=== PATIENT | male | born 1995 | race Two or more races ===

== ENCOUNTER 2018-05-01 09:57 | Emergency (ER) | payer MEDICAID, MEDICARE, OTHER, SELFPAY ==
[~2018-05-01] VITALS: Ht 175.3 cm; Wt 62.3 kg
[2018-05-01] MEDS ORDERED: BUPIVACAINE HCL 0.5% 10 ML VIAL SC ONE (10:15)
[2018-05-01] MEDS ORDERED: LIDOCAINE W/EPINEPHRINE 1% 20ML VIAL SC ONE (10:15)
[2018-05-01] MEDS ORDERED: CETACAINE SPRAY 5GM TOP ONE (10:15)
[2018-05-01] MEDS ORDERED: IBUP-1022 PO (10:58)
[2018-05-01] MEDS ORDERED: CLEO300C2 PO (10:58)
[2018-05-01] MEDS ORDERED: CLINDAMYCIN 150 MG CAP PO ONE (11:00)
[2018-05-01 11:07] VITALS: BP 132/78
== END 2018-05-01 11:15 | disposition home or self-care (01) ==
LOC: M ED 09:57
DX: S02.5XXA Fracture of tooth (traumatic), initial encounter for closed fracture (principal); X58.XXXA Exposure to other specified factors, initial encounter; Y92.89 Other specified places as the place of occurrence of the external cause; Z88.0 Allergy status to penicillin

== ENCOUNTER 2018-05-17 12:23 | Emergency (ER) | payer OTHER, SELFPAY ==
[~2018-05-17] VITALS: Ht 167.6 cm; Wt 62.3 kg
[~2018-05-17 12:23] MED LIST: CLEO300C2 PO; IBUP-1022 PO
[2018-05-17] MEDS ORDERED: ADACEL/BOOSTRIX VACCINE (DIPHTH/PERTUSS/ACELL/TETANUS)0.5ML SYR (90715) IM ONE (13:00)
[2018-05-17] MEDS ORDERED: CIPR-249 PO (13:19)
[2018-05-17 13:28] VITALS: BP 121/74
== END 2018-05-17 13:29 | disposition home or self-care (01) ==
LOC: M ED 12:23
DX: S91.331A Puncture wound without foreign body, right foot, initial encounter (principal); W45.0XXA Nail entering through skin, initial encounter; Y92.008 Other place in unspecified non-institutional (private) residence as the place of occurrence of the external cause; J45.909 Unspecified asthma, uncomplicated; Z88.0 Allergy status to penicillin

== ENCOUNTER → 2018-06-18 | Outpatient (REF) | payer OTHER ==
[~2018-06-18] MED LIST changes: +CIPR-249 PO
[2018-06-18 18:12] LABS: APPEARANCE, URINE CLEAR (CLEAR); BACTERIA, URINE AUTO NEGATIVE (NEGATIVE); BILIRUBIN, URINE AUTO NEGATIVE (NEGATIVE); BLOOD, URINE BLOOD NEGATIVE (NEGATIVE); COLOR, URINE YELLOW (YELLOW); GLUCOSE, URINE (UA) AUTO NEGATIVE (NEGATIVE); KETONE, URINE AUTO NEGATIVE (NEGATIVE); LEUKOCYTE ESTERASE, URINE AUTO NEGATIVE (NEGATIVE); MUCUS, URINE SMALL (NEGATIVE); NITRITE, URINE AUTO NEGATIVE (NEGATIVE); PROTEIN, URINE AUTO NEGATIVE (NEGATIVE); RBC, URINE AUTO 2 /HPF (0-3); SPECIFIC GRAVITY URINE AUTO 1.025 (1.002-1.035); SQUAMOUS EPITHELIAL CELL UR AU 0 /HPF (0-6); UROBILINOGEN, URINE AUTO 0.2 mg/dL (0.0-2.0); WBC, URINE AUTO 2 /HPF (0-3)
[2018-06-18 18:33] LABS: BASO % 0.4 % (0.0-1.0); EOS # 0.1 10^3/uL (0.0-0.50); EOS % 1.2 % (0.0-3.0); HEMATOCRIT 50.2 % (42.0-52.0); HEMOGLOBIN 16.9 g/dl (13.5-17.5); LYMPH # 2.6 10^3/uL (1.5-6.5); LYMPH % 28.7 % (24.0-44.0); MEAN CORPUSCULAR HEMOGLOBIN 28.8 pg (27.0-33.0); MEAN CORPUSCULAR HGB CONC 33.7 g/dl (32.0-36.5); MEAN CORPUSCULAR VOLUME 85.7 fl (80.0-96.0); MONO # 0.8 10^3/uL (0.0-0.8); MONO % 8.8 % (0.0-5.0); NEUTROPHILS # 5.4 10^3/uL (1.8-7.7); NEUTROPHILS % 60.7 % (36.0-66.0); PLATELET COUNT, AUTOMATED 292 10^3/uL (150-450); RED BLOOD COUNT 5.86 10^6/uL (4.30-6.10); WHITE BLOOD COUNT 8.9 10^3/uL (4.0-10.0)
[2018-06-18 18:45] LABS: ALBUMIN 4.4 GM/DL (3.2-5.2); ALT/SGPT 26 U/L (12-78); BILIRUBIN,TOTAL 0.6 MG/DL (0.2-1.0); BLOOD UREA NITROGEN 16 MG/DL (7-18); CALCIUM LEVEL 9.3 MG/DL (8.5-10.1); CARBON DIOXIDE LEVEL 29 MEQ/L (21-32); CHLORIDE LEVEL 104 MEQ/L (98-107); CHOLESTEROL LEVEL 175 MG/DL (<200); CREATININE FOR GFR 0.91 MG/DL (0.70-1.30); FREE T4 1.02 NG/DL (0.76-1.46); GLOMERULAR FILTRATION RATE > 60.0 (>60); GLUCOSE, FASTING 89 MG/DL (70-100); HDL CHOLESTEROL 50 MG/DL (>40); LDL CHOLESTEROL 106 MG/DL (<100); NON-HDL-C 125 MG/DL; POTASSIUM SERUM 3.9 MEQ/L (3.5-5.1); SODIUM LEVEL 141 MEQ/L (136-145); TOTAL PROTEIN 8.6 GM/DL (6.4-8.2); TRIGLYCERIDES LEVEL 96 MG/DL (<150)
[2018-06-18 18:46] LABS: TOTAL 25(OH) VITAMIN D 12.6 NG/ML (30.0-100.0)
[2018-06-18 19:03] LABS: HEMOGLOBIN A1c 5.4 %
[2018-06-18 19:26] LABS: HIV 1&2 SCREEN CENTAUR NEGATIVE (NEGATIVE)
[2018-06-18 22:01] LABS: CHLAMYDIA DNA AMPLIFICATION NEGATIVE (NEGATIVE); GC DNA AMPLIFICATION NEGATIVE (NEGATIVE)
[2018-06-20 09:52] LABS: HEPATITIS B SURFACE ANTIGEN NEGATIVE (NEGATIVE)
[2018-06-20 10:19] LABS: HEPATITIS B CORE ANTIBODY IGM NEGATIVE (NEGATIVE)
[2018-06-20 10:22] LABS: HEPATITIS A ANTIBODY IGM NEGATIVE (NEGATIVE)
[2018-06-21 00:07] LABS: Lyme Disease IgG/IgM Antibodie <0.91 ISR (0.00-0.90); Lyme Disease IgM Ab Quantitati <0.80 index (0.00-0.79)
[2018-06-22 00:07] LABS: HSV TYPE I IgG SPECIFIC <0.91 index (0.00-0.90); HSV TYPE I IgM AB <1:10 titer (<1:10); HSV TYPE II IgG SPECIFIC <0.91 index (0.00-0.90); HSV TYPE II IgM ABY <1:10 titer (<1:10)
== END ==
LOC: M LAB REF 16:37
PROVIDERS: ATTEND Internal Medicine
DX: Z13.228 Encounter for screening for other metabolic disorders (principal); Z11.3 Encounter for screening for infections with a predominantly sexual mode of transmission

== ENCOUNTER 2018-08-09 18:04 | Emergency (ER) | payer OTHER ==
[~2018-08-09] VITALS: Ht 175.3 cm; Wt 59.1 kg
[2018-08-09] MEDS ORDERED: KEFL500C17 PO (18:33)
[2018-08-09] MEDS ORDERED: cefTRIAXone SOD 1 GM VIAL (J0696) IM ONE (18:45)
[2018-08-09] MEDS ORDERED: LIDOCAINE 1% SDV 5 ML VIAL DILUENT ONE (18:45)
[2018-08-09 19:30] VITALS: BP 100/58
== END 2018-08-09 19:45 | disposition home or self-care (01) ==
LOC: EDBD 18:04 → M ED 18:04
DX: L03.113 Cellulitis of right upper limb (principal); F19.20 Other psychoactive substance dependence, uncomplicated; Z88.0 Allergy status to penicillin
CPT/HCPCS: 96372; 99284; J0696

== ENCOUNTER 2018-08-30 05:26 | Emergency (ER) | payer OTHER ==
[~2018-08-30] VITALS: Ht 177.8 cm; Wt 64.8 kg
[~2018-08-30 05:26] MED LIST changes: +KEFL500C17 PO
[2018-08-30] MEDS ORDERED: NS 1,000 ML IV ONE (06:00)
[2018-08-30 06:09] LABS: BASO # 0.1 10^3/uL (0.0-0.2); BASO % 0.3 % (0.0-1.0); EOS % 0.2 % (0.0-3.0); HEMATOCRIT 44.8 % (42.0-52.0); HEMOGLOBIN 15.4 g/dl (13.5-17.5); LYMPH # 1.4 10^3/uL (1.5-6.5); LYMPH % 6.3 % (24.0-44.0); MEAN CORPUSCULAR HEMOGLOBIN 29.7 pg (27.0-33.0); MEAN CORPUSCULAR HGB CONC 34.4 g/dl (32.0-36.5); MEAN CORPUSCULAR VOLUME 86.3 fl (80.0-96.0); MONO # 0.9 10^3/uL (0.0-0.8); MONO % 3.9 % (0.0-5.0); NEUTROPHILS # 19.6 10^3/uL (1.8-7.7); NEUTROPHILS % 88.9 % (36.0-66.0); PLATELET COUNT, AUTOMATED 313 10^3/uL (150-450); RED BLOOD COUNT 5.19 10^6/uL (4.30-6.10)
[2018-08-30] MEDS: ADACEL/BOOSTRIX VACCINE (DIPHTH/PERTUSS/ACELL/TETANUS)0.5ML SYR (90715) IM ONE ×2 (06:13→06:28)
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
[2018-08-30 06:40] LABS: ALBUMIN 3.6 GM/DL (3.2-5.2); ALT/SGPT 19 U/L (12-78); BILIRUBIN,DIRECT 0.1 MG/DL (0.0-0.2); BILIRUBIN,TOTAL 0.3 MG/DL (0.2-1.0); BLOOD UREA NITROGEN 16 MG/DL (7-18); CALCIUM LEVEL 8.9 MG/DL (8.5-10.1); CARBON DIOXIDE LEVEL 29 MEQ/L (21-32); CHLORIDE LEVEL 104 MEQ/L (98-107); CREATININE FOR GFR 0.83 MG/DL (0.70-1.30); ETHYL ALCOHOL (ETHANOL) < 0.003 % (0.000-0.010); GLOMERULAR FILTRATION RATE > 60.0 (>60); GLUCOSE, FASTING 122 MG/DL (70-100); POTASSIUM SERUM 3.7 MEQ/L (3.5-5.1); SODIUM LEVEL 139 MEQ/L (136-145); THYROID STIMULATING HORMONE 0.347 uIU/ML (0.358-3.740); TOTAL PROTEIN 7.6 GM/DL (6.4-8.2)
[2018-08-30] MEDS ORDERED: FLUORESCEIN OPHTH 1 MG STRIP OS ONE (07:00)
[2018-08-30] MEDS ORDERED: TETRACAINE 0.5% OPHTH SOLN 4ML OS ONE (07:00)
[2018-08-30] MEDS ORDERED: CLIN150C14 PO (07:10)
--- NOTE | 2018-08-30 07:19 | REP ---
PA and lateral chest: There are no comparisons. The lung elizabeth are clear. The cardiac size is normal. The jose martin, mediastinum, and skeletal structures are unremarkable. Impression: Negative PA and lateral chest. Electronically Signed by Kelvin Vaz MD 08/30/2018 07:10 A
[2018-08-30 07:24] VITALS: BP 120/61
--- NOTE | 2018-08-31 05:26 | ECGEPIP ---
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
== END 2018-08-30 07:36 | disposition home or self-care (01) ==
LOC: M ED 05:26
DX: S06.0X0A Concussion without loss of consciousness, initial encounter (principal); S00.12XA Contusion of left eyelid and periocular area, initial encounter; X58.XXXA Exposure to other specified factors, initial encounter; Y92.89 Other specified places as the place of occurrence of the external cause; J45.909 Unspecified asthma, uncomplicated; R56.9 Unspecified convulsions; Z88.0 Allergy status to penicillin; F17.210 Nicotine dependence, cigarettes, uncomplicated
CPT/HCPCS: 70450; 70486; 71046; 72125; 80048; 80076; 84443; 85025; 93005; 93041; 94760; 96360; 99284; G0480

== ENCOUNTER 2018-09-07 01:20 | Emergency (ER) | payer OTHER ==
[~2018-09-07] VITALS: Ht 177.8 cm; Wt 61.4 kg
[~2018-09-07 01:20] MED LIST changes: +CLIN150C14 PO
[2018-09-07] MEDS ORDERED: ONDANSETRON 4MG/2ML VIAL (J2405) IV ONE (05:45)
[2018-09-07] MEDS ORDERED: MORPHINE 4 MG/ML 1ML VIAL/SYRINGE (J2270) IV PRN (05:45)
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
[2018-09-07 07:25] VITALS: BP 119/58
== END 2018-09-07 07:27 | disposition short-term general hospital (02) ==
LOC: M ED 01:20
DX: S61.001A Unspecified open wound of right thumb without damage to nail, initial encounter (principal); S62.524A Nondisplaced fracture of distal phalanx of right thumb, initial encounter for closed fracture; W01.10XA Fall on same level from slipping, tripping and stumbling with subsequent striking against unspecified object, initial encounter; Y92.099 Unspecified place in other non-institutional residence as the place of occurrence of the external cause; Y93.9 Activity, unspecified; Y99.9 Unspecified external cause status; Z88.0 Allergy status to penicillin
CPT/HCPCS: 73120; 96374; 96375; 99285; J2270; J2405

== ENCOUNTER 2018-11-18 15:33 | Emergency (ER) | payer OTHER ==
[~2018-11-18] VITALS: Ht 175.3 cm; Wt 65.6 kg
[2018-11-18] MEDS ORDERED: IBUP200C25 PO (15:42)
[2018-11-18] MEDS ORDERED: CLIN150C14 PO (16:35)
[2018-11-18 17:13] VITALS: BP 131/75
== END 2018-11-18 17:35 | disposition home or self-care (01) ==
LOC: M ED 15:33
DX: S02.5XXA Fracture of tooth (traumatic), initial encounter for closed fracture (principal); K02.9 Dental caries, unspecified; Z88.0 Allergy status to penicillin; X58.XXXA Exposure to other specified factors, initial encounter; Y92.9 Unspecified place or not applicable; Y99.8 Other external cause status; R56.9 Unspecified convulsions; J45.909 Unspecified asthma, uncomplicated

== ENCOUNTER 2019-04-10 20:55 | Emergency (ER) | payer MEDICAID, OTHER, SELFPAY ==
[~2019-04-10] VITALS: Ht 175.3 cm; Wt 63.6 kg
[~2019-04-10 20:55] MED LIST changes: +IBUP200C25 PO
[2019-04-10] MEDS ORDERED: ALBUTEROL SULFATE 2.5 MG/0.5 ML INH NEB SOLN NEB ONE (23:15)
[2019-04-10] MEDS ORDERED: ALBUTEROL 90 MCG/ACT 8GM HFA INHALER INH ONE (23:15)
[2019-04-10 23:59] VITALS: BP 145/69
== END 2019-04-11 00:01 | disposition home or self-care (01) ==
LOC: M ED 20:55
DX: J45.901 Unspecified asthma with (acute) exacerbation (principal); R56.9 Unspecified convulsions; F17.200 Nicotine dependence, unspecified, uncomplicated; Z88.0 Allergy status to penicillin

== ENCOUNTER 2019-04-17 15:44 | Emergency (ER) | payer MEDICAID ==
[~2019-04-17] VITALS: Ht 175.3 cm; Wt 63.4 kg
[2019-04-17 15:45] VITALS: BP 135/87
== END 2019-04-17 20:07 | disposition left against medical advice (07) ==
LOC: M ED 15:44
DX: K08.89 Other specified disorders of teeth and supporting structures (principal); S02.5XXA Fracture of tooth (traumatic), initial encounter for closed fracture; X58.XXXA Exposure to other specified factors, initial encounter; Y92.9 Unspecified place or not applicable; Y93.9 Activity, unspecified; Y99.9 Unspecified external cause status; Z53.21 Procedure and treatment not carried out due to patient leaving prior to being seen by health care provider

== ENCOUNTER → 2019-04-18 | Outpatient (REF) | payer MEDICAID ==
[2019-04-18 17:31] LABS: BASO % 0.4 % (0.0-1.0); EOS # 0.1 10^3/uL (0.0-0.5); EOS % 0.6 % (0.0-3.0); HEMATOCRIT 48.6 % (42.0-52.0); HEMOGLOBIN 16.2 g/dl (13.5-17.5); LYMPH # 2.6 10^3/uL (1.5-5.0); LYMPH % 32.3 % (24.0-44.0); MEAN CORPUSCULAR HEMOGLOBIN 28.9 pg (27.0-33.0); MEAN CORPUSCULAR HGB CONC 33.3 g/dl (32.0-36.5); MEAN CORPUSCULAR VOLUME 86.8 fl (80.0-96.0); MONO # 0.6 10^3/uL (0.0-0.8); MONO % 7.6 % (0.0-5.0); NEUTROPHILS # 4.8 10^3/uL (1.5-8.5); NEUTROPHILS % 58.9 % (36.0-66.0); PLATELET COUNT, AUTOMATED 293 10^3/uL (150-450); WHITE BLOOD COUNT 8.1 10^3/uL (4.0-10.0)
[2019-04-18 17:54] LABS: ALBUMIN 4.4 GM/DL (3.2-5.2); ALT/SGPT 24 U/L (12-78); BILIRUBIN,TOTAL 0.2 MG/DL (0.2-1.0); BLOOD UREA NITROGEN 15 MG/DL (7-18); CALCIUM LEVEL 9.5 MG/DL (8.5-10.1); CARBON DIOXIDE LEVEL 29 MEQ/L (21-32); CHLORIDE LEVEL 107 MEQ/L (98-107); CHOLESTEROL LEVEL 167 MG/DL (<200); CHOLESTEROL RISK RATIO 3.408 (<5); CREATININE FOR GFR 0.82 MG/DL (0.70-1.30); GLOMERULAR FILTRATION RATE > 60.0 (>60); GLUCOSE, FASTING 90 MG/DL (70-100); HDL CHOLESTEROL 49 MG/DL (>40); LDL CHOLESTEROL 109 MG/DL (<100); NON-HDL-C 118 MG/DL; POTASSIUM SERUM 4.2 MEQ/L (3.5-5.1); SODIUM LEVEL 142 MEQ/L (136-145); TOTAL PROTEIN 7.8 GM/DL (6.4-8.2); TRIGLYCERIDES LEVEL 44 MG/DL (<150)
[2019-04-18 18:14] LABS: HEMOGLOBIN A1c 5.8 %
[2019-04-19 10:23] LABS: HEPATITIS B SURFACE ANTIGEN NEGATIVE (NEGATIVE)
[2019-04-19 10:41] LABS: HEPATITIS C VIRUS ABY INDEX < 0.0 INDEX (<0.8)
[2019-04-19 10:47] LABS: HEPATITIS B CORE ANTIBODY IGM NEGATIVE (NEGATIVE)
[2019-04-19 10:49] LABS: HIV 1&2 SCREEN CENTAUR NEGATIVE (NEGATIVE)
[2019-04-19 10:50] LABS: HEPATITIS A ANTIBODY IGM NEGATIVE (NEGATIVE)
== END ==
LOC: M LAB REF 16:32
PROVIDERS: ATTEND Family Medicine
DX: F19.11 Other psychoactive substance abuse, in remission (principal)

== ENCOUNTER 2019-04-27 11:56 | Emergency (ER) | payer MEDICAID ==
[~2019-04-27] VITALS: Ht 177.8 cm; Wt 63.0 kg
[2019-04-27] MEDS ORDERED: FLUORESCEIN OPHTH 1 MG STRIP OD ONE (12:45)
[2019-04-27] MEDS ORDERED: TETRACAINE 0.5% OPHTH SOLN 4ML OD ONE (12:45)
[2019-04-27] MEDS ORDERED: POLYSOL OD (14:14)
[2019-04-27] MEDS ORDERED: MOXI0.5S OD (14:14)
[2019-04-27 14:23] VITALS: BP 135/82
== END 2019-04-27 14:25 | disposition home or self-care (01) ==
LOC: M ED 11:56
DX: H10.31 Unspecified acute conjunctivitis, right eye (principal); S05.01XA Injury of conjunctiva and corneal abrasion without foreign body, right eye, initial encounter; X58.XXXA Exposure to other specified factors, initial encounter; Y92.9 Unspecified place or not applicable; Y93.E5 Activity, floor mopping and cleaning; Y99.9 Unspecified external cause status; J45.909 Unspecified asthma, uncomplicated; F17.200 Nicotine dependence, unspecified, uncomplicated; F12.10 Cannabis abuse, uncomplicated; Z79.899 Other long term (current) drug therapy; Z88.0 Allergy status to penicillin

== ENCOUNTER 2019-05-07 19:16 | Emergency (ER) | payer MEDICAID ==
[~2019-05-07] VITALS: Ht 172.7 cm; Wt 64.7 kg
[~2019-05-07 19:16] MED LIST changes: +MOXI0.5S OD; +POLYSOL OD
[2019-05-07 19:21] VITALS: BP 122/72
[2019-05-07] MEDS ORDERED: ALBU83IN NEB (19:25)
[2019-05-07] MEDS ORDERED: PROAAER10 INH (19:25)
== END 2019-05-07 20:08 | disposition home or self-care (01) ==
LOC: M ED 19:16
DX: J45.909 Unspecified asthma, uncomplicated (principal); Z88.0 Allergy status to penicillin; F17.210 Nicotine dependence, cigarettes, uncomplicated

== ENCOUNTER 2019-08-29 18:32 | Emergency (ER) | payer OTHER ==
[~2019-08-29] VITALS: Ht 175.3 cm; Wt 64.1 kg
[~2019-08-29 18:32] MED LIST changes: +ALBU83IN NEB; +PROAAER10 INH
[2019-08-29 18:33] VITALS: BP 120/67
== END 2019-08-29 20:09 | disposition left against medical advice (07) ==
LOC: M ED 18:32
DX: Z53.21 Procedure and treatment not carried out due to patient leaving prior to being seen by health care provider (principal)

== ENCOUNTER → 2019-09-25 | Emergency (ER) | payer OTHER | END | disposition left against medical advice (07) | LOC: M ED 15:00 | DX: Z53.21 Procedure and treatment not carried out due to patient leaving prior to being seen by health care provider (principal) ==

== ENCOUNTER → 2019-09-25 | Outpatient (REF) | payer OTHER ==
[2019-10-28 10:26] LABS: APPEARANCE, URINE CLEAR (CLEAR); BACTERIA, URINE AUTO NEGATIVE (NEGATIVE); BILIRUBIN, URINE AUTO NEGATIVE (NEGATIVE); BLOOD, URINE BLOOD NEGATIVE (NEGATIVE); COLOR, URINE YELLOW (YELLOW); GLUCOSE, URINE (UA) AUTO NEGATIVE (NEGATIVE); KETONE, URINE AUTO NEGATIVE (NEGATIVE); LEUKOCYTE ESTERASE, URINE AUTO TRACE (NEGATIVE); MUCUS, URINE SMALL (NEGATIVE); NITRITE, URINE AUTO NEGATIVE (NEGATIVE); PROTEIN, URINE AUTO NEGATIVE (NEGATIVE); RBC, URINE AUTO 2 /HPF (0-3); SPECIFIC GRAVITY URINE AUTO 1.027 (1.002-1.035); SQUAMOUS EPITHELIAL CELL UR AU 0 /HPF (0-6); UROBILINOGEN, URINE AUTO 0.2 mg/dL (0.0-2.0); WBC, URINE AUTO 5 /HPF (0-3)
== END ==
LOC: M LAB REF 09:44
PROVIDERS: ATTEND Physician Assistant
DX: N39.0 Urinary tract infection, site not specified (principal)

== ENCOUNTER 2019-11-27 14:00 | Emergency (ER) | payer OTHER ==
[~2019-11-27] VITALS: Ht 165.1 cm; Wt 67.0 kg
[2019-11-27 15:32] LABS: BASO % 0.4 % (0.0-1.0); EOS # 0.3 10^3/uL (0.0-0.5); HEMOGLOBIN 15.2 g/dl (13.5-17.5); LYMPH # 1.9 10^3/uL (1.5-5.0); LYMPH % 19.7 % (24.0-44.0); MEAN CORPUSCULAR HEMOGLOBIN 29.2 pg (27.0-33.0); MEAN CORPUSCULAR HGB CONC 33.8 g/dl (32.0-36.5); MEAN CORPUSCULAR VOLUME 86.4 fl (80.0-96.0); MONO # 0.7 10^3/uL (0.0-0.8); NEUTROPHILS # 6.8 10^3/uL (1.5-8.5); NEUTROPHILS % 69.7 % (36.0-66.0); PLATELET COUNT, AUTOMATED 243 10^3/uL (150-450); RED BLOOD COUNT 5.21 10^6/uL (4.30-6.10); WHITE BLOOD COUNT 9.8 10^3/uL (4.0-10.0)
[2019-11-27 15:49] LABS: BLOOD UREA NITROGEN 14 MG/DL (7-18); CARBON DIOXIDE LEVEL 28 MEQ/L (21-32); CHLORIDE LEVEL 108 MEQ/L (98-107); CREATININE FOR GFR 1.02 MG/DL (0.70-1.30); GLOMERULAR FILTRATION RATE > 60.0 (>60); GLUCOSE, FASTING 90 MG/DL (70-100); POTASSIUM SERUM 3.9 MEQ/L (3.5-5.1); SODIUM LEVEL 142 MEQ/L (136-145)
[2019-11-27 17:11] VITALS: BP 147/83
[2019-11-27 18:02] LABS: CHLAMYDIA DNA AMPLIFICATION NEGATIVE (NEGATIVE); GC DNA AMPLIFICATION NEGATIVE (NEGATIVE)
== END 2019-11-27 17:26 | disposition home or self-care (01) ==
LOC: M ED 14:00
DX: R10.9 Unspecified abdominal pain (principal); F12.10 Cannabis abuse, uncomplicated; Z88.0 Allergy status to penicillin

== ENCOUNTER 2019-12-26 23:20 | Emergency (ER) | payer OTHER ==
[~2019-12-26] VITALS: Ht 165.1 cm; Wt 65.8 kg
[2019-12-27] MEDS ORDERED: KETOROLAC 60MG 2ML VIAL IM ONE (00:15)
[2019-12-27 01:21] VITALS: BP 135/74
== END 2019-12-27 01:23 | disposition home or self-care (01) ==
LOC: M ED 23:20
DX: K02.9 Dental caries, unspecified (principal); K08.89 Other specified disorders of teeth and supporting structures; F17.200 Nicotine dependence, unspecified, uncomplicated; Z88.0 Allergy status to penicillin
CPT/HCPCS: 96372; 99283; J1885

== ENCOUNTER → 2020-03-30 | Outpatient (REF) | payer OTHER ==
[~2020-03-30] MED LIST changes: -CLIN150C14 PO; +CLIN150C15 PO
[2020-03-30 14:39] LABS: APPEARANCE, URINE CLEAR (CLEAR); BACTERIA, URINE AUTO NEGATIVE (NEGATIVE); BILIRUBIN, URINE AUTO NEGATIVE (NEGATIVE); BLOOD, URINE BLOOD NEGATIVE (NEGATIVE); COLOR, URINE YELLOW (YELLOW); GLUCOSE, URINE (UA) AUTO NEGATIVE (NEGATIVE); KETONE, URINE AUTO NEGATIVE (NEGATIVE); LEUKOCYTE ESTERASE, URINE AUTO NEGATIVE (NEGATIVE); NITRITE, URINE AUTO NEGATIVE (NEGATIVE); PROTEIN, URINE AUTO NEGATIVE (NEGATIVE); RBC, URINE AUTO 0 /HPF (0-3); SPECIFIC GRAVITY URINE AUTO 1.012 (1.002-1.035); SQUAMOUS EPITHELIAL CELL UR AU 0 /HPF (0-6); UROBILINOGEN, URINE AUTO 0.2 mg/dL (0.0-2.0); WBC, URINE AUTO 1 /HPF (0-3)
== END ==
LOC: M SMT 13:20
PROVIDERS: ATTEND Urology
DX: R31.0 Gross hematuria (principal); R10.9 Unspecified abdominal pain

== ENCOUNTER → 2020-04-17 | Outpatient (CLI) | payer OTHER ==
[~2020-04-17] MED LIST changes: +ISOVUE-370 76% 100ML VIAL As Ordered ONE
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
== END ==
LOC: M RAD 15:03
PROVIDERS: ATTEND Urology
DX: R31.0 Gross hematuria (principal); R10.9 Unspecified abdominal pain
CPT/HCPCS: 74178; Q9967

== ENCOUNTER 2020-05-26 11:49 | Observation (INO) | payer OTHER ==
[~2020-05-26] VITALS: Ht 175.3 cm; Wt 68.6 kg
[~2020-05-26 11:49] MED LIST changes: -ISOVUE-370 76% 100ML VIAL As Ordered ONE
[2020-05-26] MEDS ORDERED: LIDOCAINE 1% MDV 20ML VIAL As Ordered ONE (12:14)
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
[2020-05-26] MEDS ORDERED: LIDOCAINE 1% MDV 20ML VIAL SC ONE (12:25)
[2020-05-26] MEDS ORDERED: BACTRIM 160MG/800MG DS TAB PO ONE (12:25)
[2020-05-26] MEDS ORDERED: MORPHINE 2 MG/ML 1ML VIAL (J2270) IV PRN (13:15)
[2020-05-26 14:09] LABS: RSV AMPLIFICATION NEGATIVE (NEGATIVE)
[2020-05-26] MEDS ORDERED: ACETAMINOPHEN TAB 650MG DOSE (2X325MG) PO PRN (17:50)
[2020-05-26] MEDS: NS 1,000 ML IV SCH ×2 (18:38→22:46)
--- NOTE | 2020-05-26 18:41 | CR ---
CONSULTATION DATE: 05/26/2020 CHIEF COMPLAINT: Left ring finger amputation open fracture through the distal phalanx. HISTORY OF PRESENT ILLNESS: This 25-year-old man was building a crib. There was a nail in the wood that he was trying to saw. The saw kicked back, cut his distal phalanx through the mid aspect. He is right hand dominant. No prior injuries. He was given antibiotics and tetanus. He is COVID negative. PAST MEDICAL HISTORY: Nil. MEDICATIONS: None. ALLERGIES: No known drug allergies. SURGICAL HISTORY: Appendectomy. 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 He uses a vaporizer. He denies street drug use. PHYSICAL EXAMINATION: This is an anxious-appearing man in no acute distress. He looks his stated age. No other abnormalities. His left ring finger has a slightly oblique laceration through the mid aspect of the distal phalanx through the nail. There is exposed bone. There is slow bleeding. Otherwise, the finger is able to flex and extend with normal sensation on both sides of the digit. IMAGING DATA: Radiographs are reviewed, shows an oblique amputation through the mid aspect of the distal phalanx with obvious loss of soft tissue. ASSESSMENT AND PLAN: This is a 25-year-old man who has a partial amputation through the mid aspect of the distal phalanx, left ring finger. I recommend tetanus up to date, antibiotics immediately and following the operating room (OR), as well as irrigation, debridement, revision amputation with shortening of the digit and soft tissue coverage and ablation of the nail. Pros and cons, risks and benefits of nonsurgical versus surgical management were discussed. Risks of surgery include, but are not limited to infection, pain, stiffness, weakness, shortening of the digit, neurovascular injury, painful neuroma, delayed or nonhealing of the soft tissues, anesthetic risks, or other risks or need for further surgery. Patient understands and wishes to go ahead and signed consent for surgery as well as possible need for blood products. Patient has been nothing by mouth (NPO). I will let the operating room (OR) know that this is an urgent case as well. In the meantime, I have covered the wound with wet sterile gauze. Patient understands and had no further questions.
[2020-05-26] MEDS: traMADol 50 MG TAB PO PRN (20:49)
[2020-05-26] MEDS: CLINDAMYCIN 600 MG in IV 1 EA IV SCH (21:10)
[2020-05-26 21:53] VITALS: BP 136/85
[2020-05-27] VITALS (7 sets, daily range): BP systolic 110–137; BP diastolic 65–83
[2020-05-27] MEDS: NS 1,000 ML IV SCH ×2 (01:50→09:02)
[2020-05-27] MEDS: CLINDAMYCIN 600 MG in IV 1 EA IV SCH ×2 (09:01→17:00)
[2020-05-27] MEDS: traMADol 50 MG TAB PO PRN (09:02)
[2020-05-27] MEDS ORDERED: propofoL 200 MG/20 ML VIAL As Ordered ONE ×3 (16:10→17:11)
[2020-05-27] MEDS ORDERED: MIDAZOLAM INJ 2MG/2ML VIAL (J2250 PER 1MG) As Ordered ONE (16:10)
[2020-05-27] MEDS ORDERED: LIDOCAINE 2% 100MG/5ML SDV (FOR ANES.) As Ordered ONE (16:10)
[2020-05-27] MEDS ORDERED: fentaNYL 100 MCG/2 ML INJECTION (J3010) As Ordered ONE (16:10)
[2020-05-27] MEDS ORDERED: BUPIVACAINE HCL 0.25% 30ML VIAL As Ordered ONE (16:14)
[2020-05-27] MEDS ORDERED: CLINDAMYCIN 600 MG/50 ML PREMIX BAG As Ordered ONE (16:50)
[2020-05-27] MEDS ORDERED: fentaNYL 100 MCG/2 ML INJECTION (J3010) IV PRN (17:40)
[2020-05-27] MEDS ORDERED: LR 1,000 ML IV SCH ×2 (17:40→17:50)
[2020-05-27] MEDS ORDERED: oxyCODONE 5MG TAB PO PRN (17:40)
[2020-05-27] MEDS ORDERED: ONDANSETRON 4MG/2ML VIAL IV PRN ×2 (17:40→17:55)
--- NOTE | 2020-05-27 17:47 | REP ---
INDICATION: OR 3- NEED MINI C ARM IMAGES SAVED FOR DR. BORRERO. Intraoperative imaging. Traumatic amputation. COMPARISON: Comparison radiographs of the left ring finger May 26, 2020.. TECHNIQUE: Single fluoroscopically obtained spot radiograph. 13 seconds of fluoroscopy is reported. FINDINGS: A single last image hold fluoroscopically obtained spot radiograph of the left ring finger demonstrates amputation of the proximal phalanx at its proximal metaphyseal region.. IMPRESSION: Procedural imaging.. <Electronically signed by Dave Cruz > 05/27/20 [id number]
[2020-05-27] MEDS ORDERED: ACETAMINOPHEN TAB 650MG DOSE (2X325MG) PO PRN (17:50)
[2020-05-27] MEDS ORDERED: MORPHINE 2 MG/ML 1ML VIAL (J2270) IV PRN (17:50)
--- NOTE | 2020-05-27 18:09 | ROOPDOC ---
[facility] Report Of Operation Report of Operation DATE OF PROCEDURE: 05/27/20 PREPROCEDURE DIAGNOSES: Left ring finger partial amputation open fracture. POSTPROCEDURE DIAGNOSES: Left ring finger partial amputation open fracture. PROCEDURE: Left ring finger irrigation and debridement shortening and revision amputation. SURGEON: Dr. Hussein Borrero MD SILK WORKER: ANESTHESIA: Dr. Tong local/mac. ESTIMATED BLOOD LOSS: Approximately 5 mL. COMPLICATIONS: None. REMARKS: None. PROCEDURE NOTE: This 25-year-old man cut off the tip of his finger through the middle aspect of the distal phalanx left ring finger. I discussed the pros and cons risks and benefits of proceeding to surgery (vs nonoperative) with revision amputation shortening of the digit, I and D, and ablation of the nail. He wished to proceed. Marked left upper extremity. Patient presented yesterday evening, placed wet gauze over top and clindamycin until the operation. DESCRIPTION OF PROCEDURE: Patient was brought to the operating theater. There placed supine on the operating room table. Clindamycin was administered. Hand table used to the patient's left side. Iodine-based prep solution was used. Allowed thoroughly dried. 18 inch tourniquet was applied left upper extremity properly padded preoperative timeout was performed to confirm the site the patient and the surgery. Local/MAC anesthetic was used. I began by using 2 mL quarter percent Marcaine without epinephrine to perform a digital block at the PIP joint. Used rongeur to shorten the bone. I removed the nail including the base of the nail. I took intraoperative radiographs to ensure proper amount of shortening and smooth edges. 1L NS used for irrigation. I slightly debulked the soft tissue followed by closure with 3-0 Ethilon sutures in simple fashion. Tourniquet was taken up at the start of case and removed at the end of the case bleeding meticulously hemostased. Wound was cleansed with dry dressing followed by application of Adaptic 4 x 8 gauze and Skinny wrap. Presho and cap refill under 3 seconds post op. Patient was woken up from anesthetic transferred off the operating room table and taken to postanesthetic care unit in stable condition. All sponge needle, instrument counts were correct no complications. Plan patient is to start gentle range of motion no overhead lifting or gripping change the dressing postoperative day 1 follow-up in the office in 2 weeks' time. Patient prescription will be sent to the pharmacy of choice electronically including postoperative oral antibiotics. Risk factors for harms from taking opioid medications discussed and assessed including but not limited to personal or family history of substance use disorder, anxiety or depression, , age 65 or older, COPD or other underlying respiratory conditions, and renal or hepatic insufficiency. Discussed with patient concerns and determined any harms they may experience or be currently experiencing such as nausea or constipation, feeling sedated or confused, breathing interruptions during sleep, or taking or craving more opioids than prescribed or difficulty controlling use (addiction). Discussed early warning signs of overdose including confusion, sedation, slurred speech, abnormal gait. Postoperative wound instructions were given. It was recommended to keep the wound clean and dry. Dressing changes as needed. It was reinforced with the patient that they should call us or be seen immediately for redness, drainage, or fever. HUSSEIN BORRERO MD May 27, 2020 18:08
[2020-05-27] MEDS: PERCOCET 5MG/325MG TAB PO PRN (20:02)
[2020-05-28] MEDS: PERCOCET 5MG/325MG TAB PO PRN ×2 (02:20→08:32)
[2020-05-28 06:00] VITALS: BP 112/57
--- NOTE | 2020-05-28 10:08 | DS.PDOC ---
Discharge Summary General Date of Admission May 26, 2020 at 17:50 Date of Discharge 05/28/2020 Discharge Summary PROCEDURES PERFORMED DURING STAY: Left ring finger revision amputation and irrigation debridement. ADMITTING DIAGNOSES: 1. Left ring finger partial amputation open fracture. DISCHARGE DIAGNOSES: 1. Left ring finger partial amputation open fracture. COMPLICATIONS/CHIEF COMPLAINT: Open Fracture Of Distal Phalanx Of Ring Finger Lef. HISTORY OF PRESENT ILLNESS: A 25-year-old man cut his hand with a saw. I performed irrigation debridement revision amputation shortening of the digit. He was discharged home without difficulties the next day.. HOSPITAL COURSE: Benign. DISCHARGE MEDICATIONS: Please see below. ALLERGIES: Please see below. PHYSICAL EXAMINATION ON DISCHARGE: VITAL SIGNS: Please see below. GENERAL: HEENT: NECK: CARDIOVASCULAR EXAMINATION: RESPIRATORY EXAMINATION: ABDOMINAL EXAMINATION: EXTREMITIES: Dressing was clean and dry according to the nursing staff today I changed this to nonstick dressing gauze and Skinny wrap SKIN: NEUROLOGICAL EXAMINATION: PSYCHIATRIC EXAMINATION: LABORATORY DATA: Please see below. IMAGING: PROGNOSIS: Good ACTIVITY: Range of motion as tolerated change the dressing postop day 1 and as needed. Follow up in 5 days DIET: As tolerated DISCHARGE PLAN: Postoperative antibiotics and prescription for pain medications have been sent in to his pharmacy of choice. Follow up in the office in 5 days. Start gentle range of motion but no heavy lifting or gripping discontinue the sutures at 14 days DISPOSITION: . DISCHARGE INSTRUCTIONS:Postoperative antibiotics and prescription for pain medications have been sent in to his pharmacy of choice. Follow up in the office in 5 days. Start gentle range of motion but no heavy lifting or gripping disco ntinue the sutures at 14 days 1. . ITEMS TO FOLLOWUP ON ON OUTPATIENT: 1. . DISCHARGE CONDITION: Stable TIME SPENT ON DISCHARGE: Greater than 5 minutes. Vital Signs/I&Os Vital Signs Date Time Temp Pulse Resp B/P (MAP) Pulse Ox O2 Delivery O2 Flow Rate FiO2 05/28/20 09:02 18 05/28/20 08:32 Room Air 05/28/20 06:00 97.9 50 112/57 (75) 96 I&O- Last 24 Hours up to 6 AM 05/28/20 06:00 Intake Total 1880 ml Output Total 1455 ml Balance 425 ml Discharge Medications Scheduled PRN Albuterol Sulf (Albuterol Sulfate) 2.5 Mg/3 Ml Vial.neb, 3 ML NEB Q4HP PRN for SHORTNESS OF BREATH, (Reported) Albuterol Sulfate (Proair Hfa) 8.5 Gm Hfa.aer.ad, 2 PUFF INH Q4-6HP PRN for SHORTNESS OF BREATH, (Reported) Allergies Coded Allergies: amoxicillin (Verified Allergy, Intermediate, 05/07/19) Penicillins (Verified Allergy, Unknown, 05/07/19) BOB BORRERO MD May 28, 2020 10:08
== END 2020-05-28 11:34 | disposition home or self-care (01) ==
LOC: M ED 11:49 → M ED INP 17:50 → ENRESERV 20:50 → M MSPAV 21:53 → M MS5PR 05-27 18:01
PROVIDERS: ADMIT Orthopaedic Surgery Sports Medicine; ATTEND Orthopaedic Surgery Sports Medicine
DX: S62.635B Displaced fracture of distal phalanx of left ring finger, initial encounter for open fracture (principal); W31.2XXA Contact with powered woodworking and forming machines, initial encounter; Y92.008 Other place in unspecified non-institutional (private) residence as the place of occurrence of the external cause; Y93.D3 Activity, furniture building and finishing; Y99.9 Unspecified external cause status; F17.290 Nicotine dependence, other tobacco product, uncomplicated; J45.909 Unspecified asthma, uncomplicated; Z88.0 Allergy status to penicillin
CPT/HCPCS: 26951; 73140; 87631; 96361; 96365; 96366; 96375; 96376; 99285; J2250; J2270; J2405; J3010

== ENCOUNTER 2020-06-06 00:51 | Emergency (ER) | payer OTHER ==
[~2020-06-06] VITALS: Ht 175.3 cm; Wt 72.6 kg
[2020-06-06 00:52] VITALS: BP 115/55
[2020-06-06] MEDS ORDERED: CEPH500C PO (01:37)
== END 2020-06-06 02:01 | disposition home or self-care (01) ==
LOC: M ED 00:51
DX: R22.32 Localized swelling, mass and lump, left upper limb (principal); Z48.89 Encounter for other specified surgical aftercare; J45.909 Unspecified asthma, uncomplicated; R56.9 Unspecified convulsions; Z88.0 Allergy status to penicillin

== ENCOUNTER → 2020-08-18 | Outpatient (REF) | payer OTHER ==
[~2020-08-18] MED LIST changes: +CEPH500C PO
[2020-08-18 13:07] LABS: APPEARANCE, URINE CLEAR (CLEAR); BACTERIA, URINE AUTO NEGATIVE (NEGATIVE); BILIRUBIN, URINE AUTO NEGATIVE (NEGATIVE); BLOOD, URINE BLOOD NEGATIVE (NEGATIVE); COLOR, URINE YELLOW (YELLOW); GLUCOSE, URINE (UA) AUTO NEGATIVE (NEGATIVE); KETONE, URINE AUTO NEGATIVE (NEGATIVE); LEUKOCYTE ESTERASE, URINE AUTO NEGATIVE (NEGATIVE); MUCUS, URINE SMALL (NEGATIVE); NITRITE, URINE AUTO NEGATIVE (NEGATIVE); PROTEIN, URINE AUTO NEGATIVE (NEGATIVE); RBC, URINE AUTO 1 /HPF (0-3); SPECIFIC GRAVITY URINE AUTO 1.025 (1.002-1.035); SQUAMOUS EPITHELIAL CELL UR AU 0 /HPF (0-6); UROBILINOGEN, URINE AUTO 0.2 mg/dL (0.0-2.0); WBC, URINE AUTO 1 /HPF (0-3)
== END ==
LOC: M LAB REF 12:17
PROVIDERS: ATTEND Physician Assistant Medical
DX: M54.9 Dorsalgia, unspecified (principal)

== ENCOUNTER → 2020-08-18 | Outpatient (CLI) | payer OTHER ==
--- NOTE | 2020-08-18 13:06 | REP ---
INDICATION: LUMBOSACRAL COMPARISON: None. TECHNIQUE: AP, lateral, bilateral oblique, and coned-down views of the lumbar spine. FINDINGS: Alignment and lordosis maintained. Vertebral bodies are intact. No acute fracture/compression injury or subluxation. Disc spaces are relatively normal/age-appropriate. No obvious spondylolysis or spondylolisthesis. IMPRESSION: Normal Lumbosacral Spine series. <Electronically signed by Caleb Nava > 08/18/20 [id number]
== END ==
LOC: M RAD 12:38
PROVIDERS: ATTEND Physician Assistant Medical
DX: M54.5 Low back pain (principal)

== ENCOUNTER → 2020-10-23 | Outpatient (REF) | payer OTHER ==
[~2020-10-23] MED LIST changes: -CLIN150C15 PO; +CLIN150C17 PO
[2020-10-23 13:43] LABS: BACTERIA, URINE AUTO NEGATIVE (NEGATIVE); MUCUS, URINE SMALL (NEGATIVE); RBC, URINE AUTO 3 /HPF (0-3); SQUAMOUS EPITHELIAL CELL UR AU 1 /HPF (0-6); WBC, URINE AUTO 2 /HPF (0-3)
== END ==
LOC: M SMT 12:53
PROVIDERS: ATTEND Specialist
DX: R10.9 Unspecified abdominal pain (principal); R31.0 Gross hematuria

== ENCOUNTER 2022-04-23 23:56 | Emergency (ER) | payer OTHER ==
[~2022-04-23] VITALS: Ht 175.3 cm; Wt 67.3 kg
[~2022-04-23 23:56] MED LIST changes: +ALBU2.5V10 NEB; -ALBU83IN NEB
[2022-04-24 00:30] VITALS: BP 122/74
[2022-04-24] MEDS ORDERED: NS 1,000 ML IV ONE (00:55)
[2022-04-24] MEDS ORDERED: ONDANSETRON 4MG 2ML VIAL IV ONE (00:55)
[2022-04-24 01:11] LABS: BASO # 0.1 10^3/uL (0.0-0.2); BASO % 0.5 % (0.0-1.0); EOS # 0.1 10^3/uL (0.0-0.5); EOS % 1.2 % (0.0-3.0); HEMATOCRIT 48.2 % (42.0-52.0); HEMOGLOBIN 16.2 g/dl (13.5-17.5); LYMPH # 4.1 10^3/uL (1.5-5.0); LYMPH % 43.6 % (24.0-44.0); MEAN CORPUSCULAR HEMOGLOBIN 28.6 pg (27.0-33.0); MEAN CORPUSCULAR HGB CONC 33.6 g/dl (32.0-36.5); MEAN CORPUSCULAR VOLUME 85.2 fl (80.0-96.0); MONO # 0.7 10^3/uL (0.0-0.8); MONO % 7.4 % (2.0-8.0); NEUTROPHILS # 4.4 10^3/uL (1.5-8.5); NEUTROPHILS % 47.2 % (36.0-66.0); PLATELET COUNT, AUTOMATED 271 10^3/uL (150-450); RED BLOOD COUNT 5.66 10^6/uL (4.30-6.10); WHITE BLOOD COUNT 9.3 10^3/uL (4.0-10.0)
[2022-04-24 01:26] LABS: BLOOD UREA NITROGEN 15 MG/DL (9-23); CALCIUM LEVEL 9.3 MG/DL (8.5-10.1); CARBON DIOXIDE LEVEL 23 MMOL/L (20-31); CHLORIDE LEVEL 107 MMOL/L (98-107); CREATININE FOR GFR 0.81 MG/DL (0.70-1.30); GLOMERULAR FILTRATION RATE > 60.0 (>60); GLUCOSE, FASTING 108 MG/DL (60-100); POTASSIUM SERUM 3.3 MMOL/L (3.5-5.1); SODIUM LEVEL 143 MMOL/L (136-145)
== END 2022-04-24 04:26 | disposition home or self-care (01) ==
LOC: EDBD 23:56 → M ED 23:56
DX: F10.129 Alcohol abuse with intoxication, unspecified (principal); S02.2XXA Fracture of nasal bones, initial encounter for closed fracture; W18.39XA Other fall on same level, initial encounter; Y92.099 Unspecified place in other non-institutional residence as the place of occurrence of the external cause; R55 Syncope and collapse; F17.200 Nicotine dependence, unspecified, uncomplicated; Z88.0 Allergy status to penicillin
CPT/HCPCS: 70450; 70486; 72125; 80048; 82077; 85025; 96374; 99284; J2405

== ENCOUNTER 2022-10-05 12:45 | Emergency (ER) | payer OTHER ==
[~2022-10-05] VITALS: Ht 172.7 cm; Wt 61.9 kg
[2022-10-05] MEDS ORDERED: KETOROLAC 30 MG/ML 1ML VIAL IV ONE (16:15)
[2022-10-05] MEDS ORDERED: ONDANSETRON 4MG 2ML VIAL IV ONE (16:15)
[2022-10-05 17:09] LABS: BASO % 0.5 % (0.0-1.0); EOS % 0.5 % (0.0-3.0); HEMATOCRIT 47.3 % (42.0-52.0); HEMOGLOBIN 15.9 g/dl (13.5-17.5); LYMPH # 2.2 10^3/uL (1.5-5.0); LYMPH % 27.9 % (24.0-44.0); MEAN CORPUSCULAR HEMOGLOBIN 28.9 pg (27.0-33.0); MEAN CORPUSCULAR HGB CONC 33.6 g/dl (32.0-36.5); MONO # 0.5 10^3/uL (0.0-0.8); MONO % 6.1 % (2.0-8.0); NEUTROPHILS # 5.1 10^3/uL (1.5-8.5); NEUTROPHILS % 64.7 % (36.0-66.0); WHITE BLOOD COUNT 7.8 10^3/uL (4.0-10.0)
[2022-10-05 17:27] LABS: PLATELET COUNT, AUTOMATED 248 10^3/uL (150-450)
[2022-10-05 17:32] LABS: ALBUMIN 4.6 G/DL (3.2-5.2); ALKALINE PHOSPHATASE 47 U/L (46-116); ALT/SGPT 26 U/L (7.0-40); AST/SGOT 92 U/L (<34); BILIRUBIN,DIRECT 0.2 MG/DL (<0.4); BLOOD UREA NITROGEN 12 MG/DL (9-23); CALCIUM LEVEL 9.8 MG/DL (8.5-10.1); CARBON DIOXIDE LEVEL 25 MMOL/L (20-31); CHLORIDE LEVEL 105 MMOL/L (98-107); CREATININE FOR GFR 0.74 MG/DL (0.70-1.30); GLOMERULAR FILTRATION RATE > 60.0 (>60); GLUCOSE, FASTING 94 MG/DL (60-100); LIPASE 52 U/L (12-53); POTASSIUM SERUM 5.5 MMOL/L (3.5-5.1); SODIUM LEVEL 140 MMOL/L (136-145); TOTAL PROTEIN 7.7 G/DL (5.7-8.2)
[2022-10-05] MEDS ORDERED: ISOVUE-370 76% 100ML VIAL As Ordered ONE (18:02)
[2022-10-05 18:12] VITALS: BP 111/74; TEMP 98; O2SAT 99
[2022-10-05 22:31] LABS: GC DNA AMPLIFICATION NEGATIVE (NEGATIVE)
== END 2022-10-05 19:29 | disposition left against medical advice (07) ==
LOC: M ED 12:45
DX: R10.30 Lower abdominal pain, unspecified (principal); Z53.9 Procedure and treatment not carried out, unspecified reason; J45.909 Unspecified asthma, uncomplicated; R01.1 Cardiac murmur, unspecified; Z87.440 Personal history of urinary (tract) infections; Z87.448 Personal history of other diseases of urinary system; F17.290 Nicotine dependence, other tobacco product, uncomplicated; Z88.0 Allergy status to penicillin
CPT/HCPCS: 74177; 80048; 80076; 81001; 83690; 84132; 85025; 87088; 87661; 87810; 87850; 96374; 96375; 99283; J1885; J2405; Q9967

== ENCOUNTER 2023-09-11 14:07 | Emergency (ER) | payer OTHER ==
[~2023-09-11] VITALS: Ht 172.7 cm; Wt 59.3 kg
[2023-09-11] MEDS: PERCOCET 5MG/325MG TAB PO ONE (19:08)
[2023-09-11] MEDS: LIDOCAINE 1% MDV 20ML VIAL IM ONE (20:39)
[2023-09-11] MEDS ORDERED: BACT800T5 PO (21:11)
[2023-09-11 21:22] VITALS: BP 147/84; TEMP 97.4; O2SAT 100
== END 2023-09-11 21:20 | disposition home or self-care (01) ==
LOC: M ED 14:07
DX: S61.241A Puncture wound with foreign body of left index finger without damage to nail, initial encounter (principal); X58.XXXA Exposure to other specified factors, initial encounter; Y92.009 Unspecified place in unspecified non-institutional (private) residence as the place of occurrence of the external cause; Y93.9 Activity, unspecified; Y99.9 Unspecified external cause status; F17.200 Nicotine dependence, unspecified, uncomplicated; Z88.0 Allergy status to penicillin

== ENCOUNTER 2023-10-26 18:12 | Emergency (ER) | payer OTHER, SELFPAY ==
[~2023-10-26] VITALS: Ht 175.3 cm; Wt 60.8 kg
[~2023-10-26 18:12] MED LIST changes: +BACT800T5 PO
[2023-10-26 18:13] VITALS: BP 147/82; TEMP 97.4; O2SAT 97
== END 2023-10-26 21:54 | disposition left against medical advice (07) ==
LOC: M ED 18:12
DX: Z53.21 Procedure and treatment not carried out due to patient leaving prior to being seen by health care provider (principal)

== ENCOUNTER 2024-01-18 07:14 | Emergency (ER) | payer SELFPAY ==
[~2024-01-18] VITALS: Ht 175.3 cm; Wt 135.0 kg
[2024-01-18 08:12] LABS: BASO # 0.1 10^3/uL (0.0-0.2); BASO % 0.8 % (0.0-1.0); EOS % 0.4 % (0.0-3.0); HEMATOCRIT 45.9 % (42.0-52.0); HEMOGLOBIN 15.9 g/dl (13.5-17.5); LYMPH # 1.9 10^3/uL (1.5-5.0); MEAN CORPUSCULAR HEMOGLOBIN 29.3 pg (27.0-33.0); MEAN CORPUSCULAR HGB CONC 34.6 g/dl (32.0-36.5); MEAN CORPUSCULAR VOLUME 84.5 fl (80.0-96.0); MONO # 0.8 10^3/uL (0.0-0.8); MONO % 8.4 % (2.0-8.0); NEUTROPHILS # 6.4 10^3/uL (1.5-8.5); NEUTROPHILS % 69.2 % (36.0-66.0); PLATELET COUNT, AUTOMATED 250 10^3/uL (150-450); RED BLOOD COUNT 5.43 10^6/uL (4.30-6.10); WHITE BLOOD COUNT 9.2 10^3/uL (4.0-10.0)
[2024-01-18] MEDS: KETOROLAC 30 MG/ML 1ML VIAL IV ONE (08:27)
[2024-01-18] MEDS: ONDANSETRON 4MG 2ML VIAL IV ONE (08:27)
[2024-01-18 08:47] LABS: ALBUMIN 4.5 G/DL (3.2-5.2); BILIRUBIN,DIRECT 0.4 MG/DL (<0.4); BILIRUBIN,TOTAL 1.1 MG/DL (0.3-1.2); TOTAL PROTEIN 7.6 G/DL (5.7-8.2)
[2024-01-18 10:21] VITALS: BP 122/64; TEMP 98; O2SAT 98
== END 2024-01-18 10:23 | disposition home or self-care (01) ==
LOC: M ED 07:14
DX: N20.0 Calculus of kidney (principal); R56.9 Unspecified convulsions; F17.200 Nicotine dependence, unspecified, uncomplicated; Z88.0 Allergy status to penicillin
CPT/HCPCS: 74176; 80047; 80076; 81001; 83690; 85025; 87086; 96374; 96375; 99284; J1885; J2405